=== PATIENT | female | born 1975 | race Native Hawaiian/Other Pacific Islander ===

== ENCOUNTER 2017-04-23 18:38 | Emergency (ER) | payer OTHER ==
[2017-04-23 18:58] VITALS: BP 144/73; PULSE 100; RESP 16; TEMP 97.8; O2SAT 98
--- NOTE | 2017-04-23 19:48 | ED PDOC ---
HPI: Skin/Bite Injury Time Seen by Provider: 04/23/17 19:20 Chief Complaint (Nursing): Bite Chief Complaint (Provider): Dog Bite History Per: Patient History/Exam Limitations: no limitations Onset/Duration Of Symptoms: Hrs Current Symptoms Are (Timing): Still Present Additional Complaint(s): 41-year-old [id number] female presents with pain and swelling to right hand status post being bit by dog earlier today. Patient states at 9 AM she was bit by a dog to right hand but skin did not break. She states earlier right hand was very swollen but this has improved. Patient is not sure of last tetanus. Patient was told by corporate meeting planner of dog that dog's vaccinations are up to date. Past Medical History Reviewed: Historical Data, Nursing Documentation, Vital Signs Vital Signs: Last Vital Signs Temp 97.8 F 04/23/17 18:54 Pulse 100 H 04/23/17 18:54 Resp 16 04/23/17 18:54 BP 144/73 04/23/17 18:54 Pulse Ox 98 04/23/17 20:05 - Medical History PMH: No Chronic Diseases - Surgical History Surgical History: No Surg Hx - Family History Family History: States: No Known Family Hx - Living Arrangements Living Arrangements: With Family - Social History Current smoker - smoking cessation education provided: No Alcohol: None Drugs: Denies - Immunization History Hx Tetanus Toxoid Vaccination: No (not sure of last booster) - Allergies Allergies/Adverse Reactions: Allergies Allergy/AdvReac Type Severity Reaction Status Date / Time multiple environmental Allergy RASH Uncoded 04/23/17 18:54 allergies Review of Systems ROS Statement: Except As Marked, All Systems Reviewed And Found Negative (As per HPI, otherwise negative) Constitutional: Negative for: Fever, Chills Neurological: Positive for: Other (swelling to right hand, dog bite to hand with no break in skin) Physical Exam - Reviewed Nursing Documentation Reviewed: Yes Vital Signs Reviewed: Yes - Physical Exam Appears: Positive for: Well, Non-toxic, No Acute Distress Head Exam: Positive for: ATRAUMATIC, NORMAL INSPECTION, NORMOCEPHALIC Skin: Positive for: Normal Color. Negative for: Rash Eye Exam: Positive for: Normal appearance Extremity: Positive for: Swelling (Slight swelling to the right hand with localized erythema to interdigital space between 1st and 2nd digit, full rom of all digits of right hand). Negative for: Other (No puncture to the skin noted. ) Neurologic/Psych: Positive for: Alert, Oriented (x3) - ECG O2 Sat by Pulse Oximetry: 98 (RA) Pulse Ox Interpretation: Normal Medical Decision Making Medical Decision Making: Time: 1945 Initial impression: 41 y/o female with dog bite Initial plan: --Tetanus Booster 0.5 ml IM Dog bite to right hand is closed wound. Advised NSAID's for pain and ice and elevation. Scribe Attestation: Documented by Rubina Anderson, acting as a scribe for Nelsy Schulte PA-C Provider Scribe Attestation: All medical record entries made by the Scribe were at my direction and personally dictated by me. I have reviewed the chart and agree that the record accurately reflects my personal performance of the history, physical exam, medical decision making, and the department course for this patient. I have also personally directed, reviewed, and agree with the discharge instructions and disposition. Disposition - Clinical Impression Clinical Impression: Animal bite wound, Hand contusion, Requires a booster tetanus - Patient ED Disposition Is Patient to be Admitted: No Counseled Patient/Family Regarding: Diagnosis, Need For Followup - Disposition Referrals: [facility] [Outside] Disposition: Routine/Home Disposition Time: 20:17 Condition: STABLE Additional Instructions: Ice and elevate affected area. Take over the counter advil as needed for pain. Follow up with primary care doctor or return any time if acutely worse. Instructions: Contusion in Adults (ED), Animal Bite (ED), Diphtheria/Acellular Pertussis/Tetanus Booster Vaccine (Tdap) (Injection) Forms: [employer] ([place])
== END 2017-04-23 20:35 | disposition home or self-care (01) ==
LOC: H.ER 18:38
DX: S60.221A Contusion of right hand, initial encounter (principal); S61.451A Open bite of right hand, initial encounter; W54.0XXA Bitten by dog, initial encounter; Y92.89 Other specified places as the place of occurrence of the external cause